=== PATIENT | female | born 1980 | race Hispanic/Latino ===

== ENCOUNTER 2016-09-23 22:08 | Emergency (ER) | payer MEDICAID ==
[2016-09-23 22:09] VITALS: BMI 20.7
[2016-09-23] MEDS ORDERED: Lactated Ringer's 2,000 ML IV STA (23:26)
--- NOTE | 2016-09-23 23:58 | ED PDOC ---
HPI: Chest Pain Time Seen by Provider: 09/23/16 22:51 Chief Complaint (Nursing): Anxiety Chief Complaint (Provider): chest tightness History Per: Patient History/Exam Limitations: no limitations Onset/Duration Of Symptoms: Days (1) Current Symptoms Are (Timing): Still Present Quality: Squeezing Associated Symptoms: Nausea, Other (Near syncope). denies: Dyspnea, Diaphoresis , Syncope Additional Complaint(s): Pt reports that for 2 days increasing episodes of palpitations, chest tightness , headache and severe weakness diffusely. Symptoms started the evening after starting diflucan for esophageal palmer. She had underwent colonscopy and endoscopy 2 weeks ago for chronic bloody diarrhea. (GI: Dr Elizalde) She was found to have small hiatal hernia, candidal esphogeal infection, and colitis ( but no ulcerative colitis or crohns). Has had similar episodes of chest pain, palpitations, headache in the past, typically due to taking antibiotics. Has not taken oral antifungals in the past. Has Lyme disease and [facility] to [facility], but not since last summer. She was put on multiple courses of antibiotics and antiparasitics which seemed to only exacerbate her symptoms. PMD Dr Schuster (last seen in March.) Past Medical History Reviewed: Historical Data, Nursing Documentation, Vital Signs Vital Signs: Last Vital Signs Temp 98.7 F 09/24/16 03:10 Pulse 63 09/24/16 03:10 Resp 18 09/24/16 03:10 BP 122/62 09/24/16 03:10 Pulse Ox 100 09/26/16 02:26 - Medical History Other PMH: Lyme disease, chronic UTI - Surgical History Surgical History: Endoscopy Other surgeries: Myomectomy - Family History Family History: States: CAD - Social History Current smoker - smoking cessation education provided: No Alcohol: None Drugs: Denies - Home Medications Home Medications: Ambulatory Orders Medication Instructions Recorded Alprazolam [Xanax] 0.25 mg PO HS 08/30/16 Norgestimate-Ethinyl Estradiol 1 tab PO DAILY 08/30/16 [Trinessa Tablet] Ciprofloxacin [Cipro] 500 mg PO Q12 #14 tab 09/24/16 - Allergies Allergies/Adverse Reactions: Allergies Allergy/AdvReac Type Severity Reaction Status Date / Time No Known Allergies Allergy Verified 08/30/16 10:19 Review of Systems ROS Statement: Except As Marked, All Systems Reviewed And Found Negative (and as per HPI) Constitutional: Positive for: Chills, Weakness, Malaise Cardiovascular: Positive for: Chest Pain, Palpitations, Light Headedness Respiratory: Positive for: Shortness of Breath Gastrointestinal: Positive for: Nausea, Diarrhea Genitourinary Female: Positive for: Dysuria, Frequency Physical Exam - Reviewed Nursing Documentation Reviewed: Yes Vital Signs Reviewed: Yes - Physical Exam Appears: Positive for: Uncomfortable, In Acute Distress Head Exam: Positive for: ATRAUMATIC, NORMOCEPHALIC Skin: Positive for: Warm, Dry Eye Exam: Positive for: EOMI, PERRL ENT: Negative for: Pharyngeal Erythema, Tonsillar Exudate Neck: Positive for: Painless ROM, Supple Cardiovascular/Chest: Positive for: Regular Rate, Rhythm. Negative for: Murmur Respiratory: Positive for: Normal Breath Sounds. Negative for: Wheezing Gastrointestinal/Abdominal: Positive for: Bowel Sounds, Soft. Negative for: Tenderness, Mass, Distended, Guarding, Rebound Back: Positive for: Normal Inspection. Negative for: L CVA Tenderness, R CVA Tenderness Extremity: Positive for: Normal ROM. Negative for: Pedal Edema Lymphatic: Negative for: Adenopathy Neurologic/Psych: Positive for: Alert. Negative for: Motor/Sensory Deficits - Laboratory Results Result Diagrams: 09/23/16 23:30 09/23/16 23:30 - ECG O2 Sat by Pulse Oximetry: 100 Disposition - Clinical Impression Clinical Impression: Lyme disease, Weakness, Urinary tract infection - Disposition Disposition: Transfer of Care Disposition Time: 00:00 Condition: STABLE Prescriptions: Ciprofloxacin [Cipro] 500 mg PO Q12 #14 tab Patient Signed Over To: Florian Benavides Handoff Comments: Pending ER workup, reassessment and final disposition
[2016-09-24 00:26] LABS: BASO % 0.7 % (0.0-2.0); EOS # 0.1 K/uL (0.0-0.7); EOS % 1.9 % (0.0-4.0); HEMATOCRIT 40.9 % (34.0-47.0); LYMPH # 2.1 K/uL (1.0-4.3); LYMPH % 32.9 % (20.0-40.0); MEAN CELL VOLUME 89.9 fl (81.0-99.0); MEAN CORPUSCULAR HEMOGLOBIN 29.6 pg (27.0-31.0); MONO # 0.7 K/uL (0.0-0.8); MONO % 10.3 % (0.0-10.0); NEUT # 3.5 K/uL (1.8-7.0); NEUT % 54.2 % (50.0-75.0); NRBC % 0.2 % (0.0-0.0); RED CELL DISTRIBUTION WIDTH 13.3 % (11.5-14.5); WHITE BLOOD COUNT 6.5 K/uL (4.8-10.8)
[2016-09-24 00:38] LABS: ALB/GLOB RATIO 1.2 (1.0-2.1); ALKALINE PHOSPHATASE 59 U/L (38-126); ALT/SGPT 31 U/L (9-52); AST/SGOT 27 U/L (14-36); BILIRUBIN,TOTAL 0.2 mg/dl (0.2-1.3); BLOOD UREA NITROGEN 17 mg/dl (7-17); CALCIUM 9.2 mg/dL (8.4-10.2); CARBON DIOXIDE 25 mmol/L (22-30); CHLORIDE 105 mmol/L (98-107); GFR AFRICAN-AMERICAN > 60; GLUCOSE,RANDOM 90 mg/dL (65-105); LIPASE 143 U/L (23-300); MAGNESIUM 2.2 MG/DL (1.6-2.3); PHOSPHOROUS 2.3 mg/dl (2.5-4.5); POTASSIUM 3.6 MMOL/L (3.6-5.0); SODIUM 137 mmol/l (132-148); TOTAL PROTEIN 7.6 G/DL (6.3-8.2)
[2016-09-24 00:55] LABS: RBC URINE 8 /hpf (0-3); URINE BACTERIA MANY (<OCC); URINE BILIRUBIN NEGATIVE (NEGATIVE); URINE BLOOD SMALL (NEGATIVE); URINE COLOR YELLOW (YELLOW); URINE GLUCOSE (UA) NEG (Normal); URINE KETONE TRACE mg/dL (NEGATIVE); URINE LEUKOCYTE ESTERASE LARGE Leu/uL (Negative); URINE PROTEIN NEGATIVE (NEGATIVE); URINE UROBILINOGEN 0.2-1.0 mg/dL (0.2-1.0); WBC URINE 121 /hpf (0-5)
--- NOTE | 2016-09-24 01:03 | ED PDOC ---
- Laboratory Results Result Diagrams: 09/23/16 23:30 09/23/16 23:30 - ECG O2 Sat by Pulse Oximetry: 100 Medical Decision Making Medical Decision Makin:00 Patient signed over to me by Dr. Nanette Lloyd pending labs and reevaluation. 1:39 Labs reviewed, showed no clinically significant abnormalities with exception of urine, which was indicative of UTI. Patient reports feeling significant improvement after IV hydration. Provider has referred patient to Infectious Disease for follow up. 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 Ppatient is to be discharged home with Rx for Ciprofloxacin. Provider also reinforced need for compliance with antibiotics for treatment of UTI, which the patient states that she will consider after filling prescription. Clinical Impression: Weakness, Chronic Lyme Disease, UTI Scribe Attestation: Documented by Shaniqua Louis, acting as a scribe for Florian Benavides MD. Provider Scribe Attestation: All medical record entries made by the Scribe were at my direction and personally dictated by me. I have reviewed the chart and agree that the record accurately reflects my personal performance of the history, physical exam, medical decision making, and the department course for this patient. I have also personally directed, reviewed, and agree with the discharge instructions and disposition. Disposition - Clinical Impression Clinical Impression: Urinary tract infection, Lyme disease, Weakness - POA Present On Arrival: None - Disposition Referrals: [facility] [Outside] [facility] [Outside] Abraham Kc MD [Staff Provider] - Disposition: Routine/Home Disposition Time: 01:39 Condition: IMPROVED Prescriptions: Ciprofloxacin [Cipro] 500 mg PO Q12 #14 tab Instructions: Lyme Disease (ED), Urinary Tract Infection in Women (ED), Weakness (ED)
[2016-09-24 01:08] LABS: THYROID STIMULATING HORMONE 1.89 mIU/ML (0.46-4.68)
[2016-09-24 03:11] VITALS: BP 122/62; PULSE 63; RESP 18; TEMP 98.7
[2016-09-26 02:27] VITALS: O2SAT 100
--- NOTE | 2016-09-26 09:56 | CARD ---
APPROVED REPORT EKG Measurement Heart [id number] <Conclusion> Normal sinus rhythm Normal ECG
== END 2016-09-24 03:15 | disposition home or self-care (01) ==
LOC: H.ER 22:08
DX: A69.20 Lyme disease, unspecified (principal); N39.0 Urinary tract infection, site not specified; R53.1 Weakness

== ENCOUNTER 2016-12-22 17:50 | Emergency (ER) | payer MEDICAID ==
[2016-12-22 17:51] VITALS: BMI 20.4
[2016-12-22 17:56] VITALS: BP 106/71; PULSE 97; RESP 16; TEMP 98.5; O2SAT 100
[2016-12-22] MEDS ORDERED: Sodium Chloride 0.9% 1,000 ML IV STA (18:13)
[2016-12-22 18:38] LABS: BASO % 0.6 % (0.0-2.0); EOS # 0.2 K/uL (0.0-0.7); EOS % 2.2 % (0.0-4.0); LYMPH # 2.6 K/uL (1.0-4.3); LYMPH % 31.8 % (20.0-40.0); MEAN CELL VOLUME 90.5 fl (81.0-99.0); MEAN CORPUSCULAR HEMOGLOBIN 29.8 pg (27.0-31.0); MEAN CORPUSCULAR HGB CONC 32.9 g/dL (33.0-37.0); MEAN PLATELET VOLUME 9.9 fl (7.2-11.7); MONO # 0.6 K/uL (0.0-0.8); MONO % 6.9 % (0.0-10.0); NEUT # 4.8 K/uL (1.8-7.0); NEUT % 58.5 % (50.0-75.0); NRBC % 0.1 % (0.0-0.0); RED CELL DISTRIBUTION WIDTH 13.8 % (11.5-14.5); WHITE BLOOD COUNT 8.1 K/uL (4.8-10.8)
[2016-12-22 18:52] LABS: ALB/GLOB RATIO 1.4 (1.0-2.1); ALKALINE PHOSPHATASE 59 U/L (38-126); ALT/SGPT 26 U/L (9-52); AST/SGOT 34 U/L (14-36); BILIRUBIN,TOTAL 0.5 mg/dl (0.2-1.3); BLOOD UREA NITROGEN 16 mg/dl (7-17); CARBON DIOXIDE 23 mmol/L (22-30); CHLORIDE 106 mmol/L (98-107); GFR AFRICAN-AMERICAN > 60; GLUCOSE,RANDOM 82 mg/dL (65-105); POTASSIUM 4.5 MMOL/L (3.6-5.0); SODIUM 137 mmol/l (132-148); TOTAL PROTEIN 7.5 G/DL (6.3-8.2)
--- NOTE | 2016-12-22 19:05 | ED PDOC ---
HPI: Back Time Seen by Provider: 12/22/16 17:50 Chief Complaint (Nursing): Back Pain Chief Complaint (Provider): Left Flank Pain History Per: Patient History/Exam Limitations: no limitations Onset/Duration Of Symptoms: Days (several weeks), Worse Since (last night) Current Symptoms Are (Timing): Still Present Severity: Moderate Associated Symptoms: Other (increased urgency, nausea, and vomiting.) Additional Complaint(s): 36 year old female with a pertinent medical history of kidney stones presents to the ED with complaints of left sided flank pain that she has had for several weeks but worsened last night. She reports having associated nausea, vomiting, and increased urgency. She denies having fevers and hematuria. PMD: Past Medical History Reviewed: Historical Data, Nursing Documentation, Vital Signs Vital Signs: Last Vital Signs Temp 98.5 F 12/22/16 17:53 Pulse 97 H 12/22/16 17:53 Resp 16 12/22/16 17:53 BP 106/71 12/22/16 17:53 Pulse Ox 100 12/22/16 17:53 - Medical History PMH: Kidney Stones Denies: Colonic Polyps, Fractures, Chronic Kidney Disease, TIA Other PMH: Lupus - Surgical History Surgical History: Endoscopy - Family History Family History: States: CAD - Social History Ex-Smoker (has not smoked in the last 12 months): Yes Alcohol: None Drugs: Denies - Home Medications Home Medications: Ambulatory Orders Medication Instructions Recorded Alprazolam [Xanax] 0.25 mg PO HS 08/30/16 Norgestimate-Ethinyl Estradiol 1 tab PO DAILY 08/30/16 [Trinessa Tablet] levoFLOXacin [Levaquin] 500 mg PO DAILY 10/24/16 - Allergies Allergies/Adverse Reactions: Allergies Allergy/AdvReac Type Severity Reaction Status Date / Time No Known Allergies Allergy Verified 12/22/16 17:53 Review of Systems ROS Statement: Except As Marked, All Systems Reviewed And Found Negative Constitutional: Negative for: Fever, Chills Gastrointestinal: Positive for: Nausea, Vomiting. Negative for: Abdominal Pain , Diarrhea Genitourinary Female: Positive for: Frequency (increased urgency). Negative for : Hematuria Musculoskeletal: Positive for: Back Pain (left flank pain) Physical Exam - Reviewed Nursing Documentation Reviewed: Yes Vital Signs Reviewed: Yes - Physical Exam Appears: Positive for: Non-toxic, Uncomfortable (writhing in pain) Head Exam: Positive for: ATRAUMATIC, NORMOCEPHALIC Skin: Positive for: Normal Color, Warm, Dry Cardiovascular/Chest: Positive for: Regular Rate, Rhythm Respiratory: Positive for: Normal Breath Sounds. Negative for: Respiratory Distress Gastrointestinal/Abdominal: Positive for: Tenderness (Right lower quadrant tenderness) Back: Positive for: L CVA Tenderness (left flank tenderness) Neurologic/Psych: Positive for: Alert, Oriented (3x) - Laboratory Results Result Diagrams: 12/22/16 18:22 12/22/16 18:22 - ECG O2 Sat by Pulse Oximetry: 100 (RA) Pulse Ox Interpretation: Normal Medical Decision Making Medical Decision Makin:07 Initial impression: 36 year old female with a history of kidney stones and left flank pain. rule out stone Initial plan: * CT abd and pelvis w/o PO or IV * CMP * urine * udip * CBC * IV NS 1,000ml IV 999 mls/hr * toradol 30mg IV * zofran 4mg IV * urine culture * reevaluation 20:32 CT abdomen and pelvis read and reviewed by radiologist FINDINGS: LOWER THORAX: No infiltrate seen in the lung bases. ABDOMEN: LIVER: No acute abnormality of the liver identified. GALLBLADDER AND BILE DUCTS: No CT evidence of acute cholecystitis. No evidence of significant biliary ductal dilatation. PANCREAS: No CT evidence of acute pancreatitis. SPLEEN: No acute abnormality of the spleen identified. ADRENALS: No acute abnormality of the adrenal glands identified. KIDNEYS AND URETERS:No acute abnormality of the kidneys seen. No renal stones, hydronephrosis, or hydroureter seen. STOMACH AND BOWEL: Retained stool noted throughout the colon. The bowel is otherwise unremarkable, allowing for unenhanced technique. No evidence of bowel obstruction, pancolitis, or significant gastric dilatation. APPENDIX: High density material seen in the lumen of the appendix. This could represent retained oral contrast from a prior study versus appendicoliths. There are no findings to suggest acute appendicitis. PELVIS: BLADDER: No acute abnormality of the bladder identified. REPRODUCTIVE: No acute abnormality of the uterus identified. No evidence of large adnexal masses. No acute abnormality of the reproductive organs is seen. ABDOMEN and PELVIS: INTRAPERITONEAL SPACE: No evidence of free intraperitoneal air or fluid. BONES/JOINTS: No acute fractures or other acute bony abnormality noted. SOFT TISSUES: No acute abnormality of the visualized soft tissues is seen. VASCULATURE: No evidence of abdominal aortic aneurysm. No evidence of periaortic hemorrhage. LYMPH NODES: No evidence of diffuse lymphadenopathy. IMPRESSION: - No evidence of significant acute process on this unenhanced exam. There is no evidence of nephrolithiasis or obstructive uropathy. - See above for remaining findings. 22:27 Urine shows neg leuk and nit. CT as above is negative. Pt referred to outpt urology. Patient is stable for discharge home and is given referral to urology. Scribe Attestation: Documented by Lizbeth Toribio, acting as a scribe for Sadi Barrow MD. Provider Scribe Attestation: All medical record entries made by the Scribe were at my direction and personally dictated by me. I have reviewed the chart and agree that the record accurately reflects my personal performance of the history, physical exam, medical decision making, and the department course for this patient. I have also personally directed, reviewed, and agree with the discharge instructions and disposition. Disposition - Clinical Impression Clinical Impression: Back pain - Patient ED Disposition Is Patient to be Admitted: No Counseled Patient/Family Regarding: Studies Performed, Need For Followup - Disposition Referrals: [facility] [Outside] Temitope Moody MD [Medical Doctor] - Disposition: Routine/Home Disposition Time: 22:10 Condition: IMPROVED Additional Instructions: follow up with your primary doctor in 1-2 days return to the ED with any worsening or concerning symptoms Instructions: Back Pain (ED)
--- NOTE | 2016-12-22 20:32 | CT ---
EXAM: CT Abdomen and Pelvis Without Intravenous Contrast CLINICAL HISTORY: 36 years old, female; Pain; Abdominal pain; Flank; Left; Prior surgery; Surgery date: 6+ months; Surgery type: Myomectomy about 4 yrs ago; Additional info: Left flank pain rule out stone TECHNIQUE: Axial computed tomography images of the abdomen and pelvis without intravenous contrast. This CT exam was performed using one or more of the following dose reduction techniques: automated exposure control, adjustment of the mA and/or kV according to patient size, and/or use of iterative reconstruction technique. Coronal and sagittal reformatted images were created and reviewed. EXAM DATE/TIME: 12/22/2016 6:56 PM COMPARISON: Prior CT abdomen and pelvis of 04/13/2008 FINDINGS: LOWER THORAX: No infiltrate seen in the lung bases. ABDOMEN: LIVER: No acute abnormality of the liver identified. GALLBLADDER AND BILE DUCTS: No CT evidence of acute cholecystitis. No evidence of significant biliary ductal dilatation. PANCREAS: No CT evidence of acute pancreatitis. SPLEEN: No acute abnormality of the spleen identified. ADRENALS: No acute abnormality of the adrenal glands identified. KIDNEYS AND URETERS:No acute abnormality of the kidneys seen. No renal stones, hydronephrosis, or hydroureter seen. STOMACH AND BOWEL: Retained stool noted throughout the colon. The bowel is otherwise unremarkable, allowing for unenhanced technique. No evidence of bowel obstruction, pancolitis, or significant gastric dilatation. APPENDIX: High density material seen in the lumen of the appendix. This could represent retained oral contrast from a prior study versus appendicoliths. There are no findings to suggest acute appendicitis. PELVIS: BLADDER: No acute abnormality of the bladder identified. REPRODUCTIVE: No acute abnormality of the uterus identified. No evidence of large adnexal masses. No acute abnormality of the reproductive organs is seen. ABDOMEN and PELVIS: INTRAPERITONEAL SPACE: No evidence of free intraperitoneal air or fluid. BONES/JOINTS: No acute fractures or other acute bony abnormality noted. SOFT TISSUES: No acute abnormality of the visualized soft tissues is seen. VASCULATURE: No evidence of abdominal aortic aneurysm. No evidence of periaortic hemorrhage. LYMPH NODES: No evidence of diffuse lymphadenopathy. IMPRESSION: - No evidence of significant acute process on this unenhanced exam. There is no evidence of nephrolithiasis or obstructive uropathy. - See above for remaining findings.
[2016-12-22 22:04] LABS: RBC URINE 1 /hpf (0-3); URINE BACTERIA MOD (<OCC); URINE BILIRUBIN NEGATIVE (NEGATIVE); URINE BLOOD NEGATIVE (NEGATIVE); URINE COLOR STRAW (YELLOW); URINE GLUCOSE (UA) NEG (Normal); URINE KETONE NEGATIVE (NEGATIVE); URINE LEUKOCYTE ESTERASE NEG Leu/uL (Negative); URINE PROTEIN NEGATIVE (NEGATIVE); URINE UROBILINOGEN 0.2-1.0 mg/dL (0.2-1.0); WBC URINE 3 /hpf (0-5)
== END 2016-12-22 22:20 | disposition home or self-care (01) ==
LOC: H.ER 17:50
DX: M54.9 Dorsalgia, unspecified (principal)

== ENCOUNTER 2017-01-25 16:54 | Emergency (ER) | payer MEDICAID ==
[2017-01-25 16:54] VITALS: BMI 20.4
[2017-01-25] MEDS ORDERED: Sodium Chloride 0.9% 1,000 ML IV STA (18:27)
[2017-01-25] MEDS ORDERED: Ciprofloxacin 400mg/200ml D5W 400 MG/200 ML BAG IV STA (18:38)
--- NOTE | 2017-01-25 18:50 | ED PDOC ---
HPI: Abdomen Time Seen by Provider: 01/25/17 17:52 Chief Complaint (Nursing): Back Pain Chief Complaint (Provider): Left flank Pain and Left Abdominal Pain History Per: Patient History/Exam Limitations: no limitations Onset/Duration Of Symptoms: Days (x1 day), Worse Since (worening since onset.) Outside of [place] travel?: No Current Symptoms Are (Timing): Still Present Associated Symptoms: Nausea, Vomiting, Diarrhea (x2 episodes), Urinary Symptoms Additional Complaint(s): Keysha Larry, a 36 year old female, who has a past medical history of lyme disease and UTI, presents to the ED complaining of left flank pain and abdominal pain x1 day. The patient says the pain has been worsening since onset. She states that she has had associated dysuria, frequency and frequency since monday. The patient further states that she has been feeling nauseous and has some episodes of vomiting (non bloody non bilious) along with 2 episodes of diarrhea. She states that she saw a fill manager today who sent her to the ER for further evaluation of possible pyelonephritis. PMD: Dr. 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 Bailey ([place]) Abnormal Vaginal Bleeding: No Past Medical History Reviewed: Historical Data, Nursing Documentation, Vital Signs Vital Signs: Last Vital Signs Temp 97.8 F 01/25/17 23:07 Pulse 83 01/25/17 23:07 Resp 18 01/25/17 23:07 BP 133/68 01/25/17 23:07 Pulse Ox 100 01/25/17 23:07 - Medical History PMH: Kidney Stones Denies: Colonic Polyps, Fractures, Chronic Kidney Disease, TIA Other PMH: Lyme Disease, Urinary Tract Infection - Surgical History Surgical History: Endoscopy Other surgeries: Myomectomy. - Family History Family History: States: CAD - Social History Current smoker - smoking cessation education provided: No Ex-Smoker (has not smoked in the last 12 months): No Alcohol: None Drugs: Denies - Home Medications Home Medications: Ambulatory Orders Medication Instructions Recorded Alprazolam [Xanax] 0.25 mg PO HS 08/30/16 Norgestimate-Ethinyl Estradiol 1 tab PO DAILY 08/30/16 [Trinessa Tablet] levoFLOXacin [Levaquin] 500 mg PO DAILY 10/24/16 Ciprofloxacin HCl [Cipro] 500 mg PO BID #20 tab 01/25/17 Ibuprofen [Motrin Tab] 600 mg PO Q8 PRN #60 tab 01/25/17 traMADol [Ultram] 50 mg PO TID PRN #15 tab 01/25/17 - Allergies Allergies/Adverse Reactions: Allergies Allergy/AdvReac Type Severity Reaction Status Date / Time No Known Allergies Allergy Verified 12/22/16 17:53 Review of Systems ROS Statement: Except As Marked, All Systems Reviewed And Found Negative Gastrointestinal: Positive for: Nausea, Vomiting (non bloody, non bilious), Abdominal Pain, Diarrhea (x2 episodes) Genitourinary Female: Positive for: Dysuria, Frequency Musculoskeletal: Positive for: Back Pain (Left flank pain) Physical Exam - Reviewed Nursing Documentation Reviewed: Yes Vital Signs Reviewed: Yes - Physical Exam Appears: Positive for: Non-toxic, Uncomfortable (Wretching), In Acute Distress ( Moderate painful distress) Head Exam: Positive for: ATRAUMATIC, NORMAL INSPECTION, NORMOCEPHALIC Skin: Positive for: Normal Color, Warm, Dry Eye Exam: Positive for: Normal appearance, EOMI, PERRL ENT: Positive for: Normal ENT Inspection Neck: Positive for: Normal, Painless ROM, Supple Cardiovascular/Chest: Positive for: Regular Rate, Rhythm, Chest Non Tender Respiratory: Positive for: Normal Breath Sounds. Negative for: Wheezing, Respiratory Distress Gastrointestinal/Abdominal: Positive for: Bowel Sounds, Soft, Tenderness (Left sided abdominal tenderness.). Negative for: Mass, Distended, Guarding, Rebound Back: Positive for: L CVA Tenderness Extremity: Positive for: Normal ROM. Negative for: Tenderness, Pedal Edema, Deformity, Swelling Neurologic/Psych: Positive for: Alert, Oriented, Gait - Laboratory Results Result Diagrams: 01/25/17 18:45 01/25/17 18:45 - ECG O2 Sat by Pulse Oximetry: 99 (RA) Pulse Ox Interpretation: Normal Medical Decision Making Medical Decision Makin Initial Impression: 36 year old female presenting with left flank pain and abdominal pain Differentials: UTI, Cystitis, Colitis, Renal Colic and Pylonephritis Initial Plan: * VBG * Comp Metabolic Panel * Lipase * Upreg * Udip * CBC * Cipro 400mg/200ml DSW IV * NS 1000mls IV 1000mls/hr * Toradol 15mg IV * Zofran 8mg IV * Blood Culture * Urine Culture * Urinalysis * Reevaluation Accession No. : [id number] Patient Name / ID : LARON YEN / [id number] Exam Date : 01/25/2017 21:12:47 ( Approved ) Study Comment : Sex / Age : F / 36Y Creator : Andrés Kaba MD Dictator : Bench Worker Apprentice : Hand Laminator : Andrés Kaba MD Approver2 : Report Date : 01/25/2017 21:36:00 My Comment : [facility] Division of Radiology [address] [place] [address] Tel. no. Patient Name: KEYSHA LARRY Pt. Address: [address] [place] [address]. Rec #: [id number] [place] [address]: Gabino DUMONT, Nanette Hwang Pt CELL Order Location: [facility] : 1980 Female Age: 36 Order #: [id number] Reason for exam: LEFT flank pain CT Scan ABD PELVIS W/O PO OR IV CONT Exam Date: 01/25/17 This imaging exam was performed at [facility] EXAM: CT Abdomen and Pelvis Without Intravenous Contrast CLINICAL HISTORY: 36 years old, female; Pain; Abdominal pain; Flank; Left; Prior surgery; Surgery date: 6+ months; Surgery type: Myomectomy; Additional info: Left flank pain. Sent labs, and phy. Doc TECHNIQUE: Axial computed tomography images of the abdomen and pelvis without intravenous contrast. This CT exam was performed using one or more of the following dose reduction techniques: automated exposure control, adjustment of the mA and/or kV according to patient size, and/or use of iterative reconstruction technique. Coronal and sagittal reformatted images were created and reviewed. COMPARISON: CT - ABD PELVIS W/O PO OR IV CONT 12/22/2016 7:03:52 PM FINDINGS: Lower thorax: No acute findings. ABDOMEN: Liver: Unremarkable. Gallbladder and bile ducts: No calcified stones. No ductal dilation. Pancreas: Unremarkable. No ductal dilation. Spleen: No splenomegaly. Adrenals: No mass. Kidneys and ureters: No renal calculi. No hydronephrosis. Stomach and bowel: No definite mural thickening. No obstruction. Appendix: Normal caliber. No inflammation. PELVIS: Bladder: Unremarkable. No stones. Reproductive: 2.3 x 2.2 x 2.1 cm hypodense lesion within RIGHT ovary. ABDOMEN and PELVIS: Intraperitoneal space: Trace free fluid within pelvis. No free air. Bones/joints: No acute fracture. Soft tissues: Unremarkable. Vasculature: Few rounded calcifications within pelvis, likely phleboliths. No aneurysm. Lymph nodes: No pathologically enlarged lymph nodes. IMPRESSION: 1. No CT evidence of urolithiasis. 2. Probable RIGHT ovarian cyst. Consider ultrasound. 3. Incidental/non-acute findings are described above. Dictated By: Andrés Kaba MD Dictated Date/Time: 01/25/172135 Signed By: Andrés Kaba MD Date Signed: 2135 Transcribed By: CAR Transcribe Date/Time : 01/25/172135 ACYP02/NETO DW pt findings. She required IV opiates in ER and offered admission for treatment of clinical pyelopnephritis. She declines at this time and is eager to go home. Scribe Attestation Documented by Blaire Garcia acting as a scribe for Nanette Lloyd MD. Provider Attestation: All medical record entries made by the Scribe were at my direction and personally dictated by me. I have reviewed the chart and agree that the record accurately reflects my personal performance of the history, physical exam, medical decision making, and the department course for this patient. I have also personally directed, reviewed, and agree with the discharge instructions and disposition. Disposition - Clinical Impression Clinical Impression: Pyelonephritis Counseled Patient/Family Regarding: Studies Performed, Diagnosis, Need For Followup, Rx Given - Disposition Referrals: Zoë Cohen MD [Medical Doctor] - 01/26/17 Disposition: Routine/Home Disposition Time: 22:00 Condition: IMPROVED Prescriptions: Ciprofloxacin HCl [Cipro] 500 mg PO BID #20 tab Ibuprofen [Motrin Tab] 600 mg PO Q8 PRN #60 tab PRN Reason: Pain, Moderate (4-7) traMADol [Ultram] 50 mg PO TID PRN #15 tab PRN Reason: SEVERE PAIN ONLY Instructions: Acute Pyelonephritis (ED) Forms: [facility] ED School/Work Excuse
[2017-01-25] MEDS ORDERED: Ciprofloxacin 400mg/200ml D5W 400 MG/200 ML BAG IVPB ONE (18:57)
[2017-01-25 19:08] LABS: BASO # 0.1 K/uL (0.0-0.2); BASO % 0.8 % (0.0-2.0); EOS # 0.1 K/uL (0.0-0.7); EOS % 1.2 % (0.0-4.0); LYMPH # 1.6 K/uL (1.0-4.3); LYMPH % 17.4 % (20.0-40.0); MEAN CELL VOLUME 90.4 fl (81.0-99.0); MEAN CORPUSCULAR HEMOGLOBIN 29.8 pg (27.0-31.0); MEAN CORPUSCULAR HGB CONC 32.9 g/dL (33.0-37.0); MEAN PLATELET VOLUME 9.5 fl (7.2-11.7); MONO # 0.7 K/uL (0.0-0.8); MONO % 7.2 % (0.0-10.0); NEUT % 73.4 % (50.0-75.0); RED CELL DISTRIBUTION WIDTH 13.7 % (11.5-14.5); WHITE BLOOD COUNT 9.5 K/uL (4.8-10.8)
[2017-01-25 19:12] LABS: VENOUS BLOOD GAS BASE EXCESS 4.4 mmol/L (0.0-2.0); VENOUS BLOOD GAS PCO2 52 mmHg (40-60); VENOUS BLOOD PH 7.38 (7.32-7.43)
[2017-01-25 19:22] LABS: ALB/GLOB RATIO 1.4 (1.0-2.1); ALKALINE PHOSPHATASE 47 U/L (38-126); ALT/SGPT 37 U/L (9-52); AST/SGOT 19 U/L (14-36); BILIRUBIN,TOTAL 0.3 mg/dl (0.2-1.3); BLOOD UREA NITROGEN 10 mg/dl (7-17); CALCIUM 9.2 mg/dL (8.4-10.2); CARBON DIOXIDE 26 mmol/L (22-30); CHLORIDE 105 mmol/L (98-107); GFR AFRICAN-AMERICAN > 60; GLUCOSE,RANDOM 83 mg/dL (65-105); LIPASE 74 U/L (23-300); POTASSIUM 4.2 MMOL/L (3.6-5.0); SODIUM 140 mmol/l (132-148); TOTAL PROTEIN 6.8 G/DL (6.3-8.2)
[2017-01-25 19:57] LABS: RBC URINE 3 /hpf (0-3); URINE BACTERIA FEW (<OCC); URINE BILIRUBIN NEGATIVE (NEGATIVE); URINE BLOOD SMALL (NEGATIVE); URINE COLOR STRAW (YELLOW); URINE GLUCOSE (UA) NEG (Normal); URINE KETONE NEGATIVE (NEGATIVE); URINE LEUKOCYTE ESTERASE LARGE Leu/uL (Negative); URINE PROTEIN NEGATIVE (NEGATIVE); URINE UROBILINOGEN 0.2-1.0 mg/dL (0.2-1.0); WBC URINE 41 /hpf (0-5)
--- NOTE | 2017-01-25 21:36 | CT ---
EXAM: CT Abdomen and Pelvis Without Intravenous Contrast CLINICAL HISTORY: 36 years old, female; Pain; Abdominal pain; Flank; Left; Prior surgery; Surgery date: 6+ months; Surgery type: Myomectomy; Additional info: Left flank pain. Sent labs, and phy. Doc TECHNIQUE: Axial computed tomography images of the abdomen and pelvis without intravenous contrast. This CT exam was performed using one or more of the following dose reduction techniques: automated exposure control, adjustment of the mA and/or kV according to patient size, and/or use of iterative reconstruction technique. Coronal and sagittal reformatted images were created and reviewed. COMPARISON: CT - ABD PELVIS W/O PO OR IV CONT 12/22/2016 7:03:52 PM FINDINGS: Lower thorax: No acute findings. ABDOMEN: Liver: Unremarkable. Gallbladder and bile ducts: No calcified stones. No ductal dilation. Pancreas: Unremarkable. No ductal dilation. Spleen: No splenomegaly. Adrenals: No mass. Kidneys and ureters: No renal calculi. No hydronephrosis. Stomach and bowel: No definite mural thickening. No obstruction. Appendix: Normal caliber. No inflammation. PELVIS: Bladder: Unremarkable. No stones. Reproductive: 2.3 x 2.2 x 2.1 cm hypodense lesion within RIGHT ovary. ABDOMEN and PELVIS: Intraperitoneal space: Trace free fluid within pelvis. No free air. Bones/joints: No acute fracture. Soft tissues: Unremarkable. Vasculature: Few rounded calcifications within pelvis, likely phleboliths. No aneurysm. Lymph nodes: No pathologically enlarged lymph nodes. IMPRESSION: 1. No CT evidence of urolithiasis. 2. Probable RIGHT ovarian cyst. Consider ultrasound. 3. Incidental/non-acute findings are described above.
[2017-01-25 23:08] VITALS: BP 133/68; PULSE 83; RESP 18; TEMP 97.8
[2017-01-28 20:53] VITALS: O2SAT 99
== END 2017-01-25 23:13 | disposition home or self-care (01) ==
LOC: H.ER 16:54
DX: N10 Acute pyelonephritis (principal); A69.20 Lyme disease, unspecified

== ENCOUNTER 2017-05-24 19:03 | Emergency (ER) | payer MEDICAID ==
[2017-05-24 19:03] VITALS: BMI 20.4
[2017-05-24 19:16] VITALS: O2SAT 99
[2017-05-24] MEDS ORDERED: Sodium Chloride 0.9% 1,000 ML IV STA (19:39)
--- NOTE | 2017-05-24 20:17 | ED PDOC ---
HPI: Headache Time Seen by Provider: 05/24/17 19:23 Chief Complaint (Nursing): Dizziness/Lightheaded History Per: Patient History/Exam Limitations: no limitations Onset/Duration Of Symptoms: Days Current Symptoms Are (Timing): Still Present Quality: Tightness Preceeding Symptoms: None Associated Symptoms: Photophobia Additional Complaint(s): Hx of Lyme Disease x 12 years (on no meds) p/w DEAN x 2 days, states she has had relapsing/remitting, gradually worsening, nonthunderclap, not worse of life, throbbing DEAN, described as "brain squeezing" sensation. States she has "burning " sensation on parts of legs that come and go. Partner states that she's been weak and has been nearly fainting, states that she has also been "laughing" inappropriately. Denies drug/alcohol use, states she is a former smoker. Takes no meds other than OCPs. States they were told to get a CT from PMD. Requesting MRI as well. - Risk Factors SAH Risk Factors: Neg: Marfan's Syndrome, Sudden Onset Of Pain, Worst Headache Of Life Past Medical History Reviewed: Historical Data, Nursing Documentation, Vital Signs Vital Signs: Last Vital Signs Temp 97.5 F L 05/24/17 19:15 Pulse 84 05/24/17 19:15 Resp 16 05/24/17 19:15 BP 128/85 05/24/17 19:15 Pulse Ox 99 05/24/17 19:15 - Medical History PMH: Kidney Stones Denies: Colonic Polyps, Fractures, Chronic Kidney Disease, TIA - Surgical History Surgical History: Endoscopy - Family History Family History: States: CAD - Home Medications Home Medications: Ambulatory Orders Medication Instructions Recorded Alprazolam [Xanax] 0.25 mg PO HS 08/30/16 Norgestimate-Ethinyl Estradiol 1 tab PO DAILY 08/30/16 [Trinessa Tablet] levoFLOXacin [Levaquin] 500 mg PO DAILY 10/24/16 Ciprofloxacin HCl [Cipro] 500 mg PO BID #20 tab 01/25/17 Ibuprofen [Motrin Tab] 600 mg PO Q8 PRN #60 tab 01/25/17 traMADol [Ultram] 50 mg PO TID PRN #15 tab 01/25/17 Ketorolac Tromethamine [Toradol] 10 mg PO Q6 #30 tab 11/15/17 - Allergies Allergies/Adverse Reactions: Allergies Allergy/AdvReac Type Severity Reaction Status Date / Time No Known Allergies Allergy Verified 12/22/16 17:53 Review of Systems ROS Statement: Except As Marked, All Systems Reviewed And Found Negative Gastrointestinal: Positive for: Nausea, Vomiting Neurological: Positive for: Weakness, Incoordination, Confusion. Negative for: Change in Speech Physical Exam - Reviewed Nursing Documentation Reviewed: Yes Vital Signs Reviewed: Yes - Physical Exam Appears: Positive for: Well, Non-toxic. Negative for: No Acute Distress ( Uncomfortable appearing) Head Exam: Positive for: ATRAUMATIC, NORMAL INSPECTION, NORMOCEPHALIC Skin: Positive for: Normal Color, Warm, DRY Eye Exam: Positive for: EOMI, Normal appearance, PERRL ENT: Positive for: Normal ENT Inspection Neck: Positive for: Normal, Painless ROM Cardiovascular/Chest: Positive for: Regular Rate, Rhythm Respiratory: Positive for: CNT, Normal Breath Sounds Gastrointestinal/Abdominal: Positive for: Normal Exam, Bowel Sounds, Soft Back: Positive for: Normal Inspection Extremity: Positive for: Normal ROM Neurologic/Psych: Positive for: 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 Negative for: Motor/Sensory Deficits, Mood/Affect, Cerebellar Tests, Gait, Aphasia, Facial Droop - Laboratory Results Result Diagrams: 05/24/17 21:41 05/24/17 21:41 - ECG O2 Sat by Pulse Oximetry: 99 Pulse Ox Interpretation: Normal Medical Decision Making Medical Decision Making: A/P: Hx of Lyme's w/ DEAN x 2 days -do not suspect SAH/meningitis based on hx and pe -most likely complicated migraine -will give toradol/reglan/IVF/O2, basic labs, head CT and reassess 1015PM Pt. is feeling better. Drinking juice. Awaiting CT report. 1030PM Pt. tolerating PO. CT negative. Referral given to Dr. Ron. All questions answered and return precautions discussed (worsening headaches, fevers, neurological symptoms or other concerning symptoms). Disposition - Clinical Impression Clinical Impression: Complicated migraine - Disposition Referrals: Asif Rno MD [Medical Doctor] - Disposition: Routine/Home Disposition Time: 22:30 Condition: IMPROVED Prescriptions: Ketorolac Tromethamine [Toradol] 10 mg PO Q6 #30 tab Instructions: Migraine Headache (ED), Acute Headache (ED) Forms: [employer] (Malay)
[2017-05-24 21:45] LABS: BASO % 0.5 % (0.0-2.0); EOS # 0.1 K/uL (0.0-0.7); EOS % 1.6 % (0.0-4.0); HEMATOCRIT 38.6 % (34.0-47.0); MEAN CELL VOLUME 88.4 fl (81.0-99.0); MEAN CORPUSCULAR HEMOGLOBIN 29.3 pg (27.0-31.0); MEAN CORPUSCULAR HGB CONC 33.1 g/dL (33.0-37.0); MEAN PLATELET VOLUME 9.3 fl (7.2-11.7); MONO # 0.4 K/uL (0.0-0.8); MONO % 5.5 % (0.0-10.0); NEUT # 5.2 K/uL (1.8-7.0); NEUT % 66.4 % (50.0-75.0); RED CELL DISTRIBUTION WIDTH 13.1 % (11.5-14.5); WHITE BLOOD COUNT 7.8 K/uL (4.8-10.8)
[2017-05-24 22:07] LABS: BLOOD UREA NITROGEN 16 mg/dl (7-17); CARBON DIOXIDE 26 mmol/L (22-30); CHLORIDE 104 mmol/L (98-107); GFR AFRICAN-AMERICAN > 60; GLUCOSE,RANDOM 81 mg/dL (65-105); POTASSIUM 3.6 MMOL/L (3.6-5.0); SODIUM 140 mmol/l (132-148)
--- NOTE | 2017-05-24 22:19 | CT ---
EXAM: CT Head Without Intravenous Contrast CLINICAL HISTORY: 36 years old, female; Pain and signs and symptoms; Dizziness and other: Weakness; Headache; Headache not specified; Additional info: Headache x 2 days, HX of lyme disease TECHNIQUE: Axial computed tomography images of the head/brain without intravenous contrast. All CT scans at this facility use one or more dose reduction techniques, viz.: automated exposure control; ma/kV adjustment per patient size (including targeted exams where dose is matched to indication; i.e. head); or iterative reconstruction technique. Coronal and sagittal reformatted images were created and reviewed. COMPARISON: No relevant prior studies available. FINDINGS: Brain: No acute intracranial hemorrhage. No significant white matter disease. No edema. Ventricles: No significant ventriculomegaly. Bones: No acute displaced fracture. Sinuses: Unremarkable as visualized. No acute sinusitis. Mastoid air cells: Unremarkable as visualized. No mastoid effusion. IMPRESSION: No acute intracranial hemorrhage, or suspicious mass effect.
[2017-05-24 22:34] LABS: URINE BILIRUBIN NEGATIVE (NEGATIVE); URINE BLOOD NEGATIVE (NEGATIVE); URINE COLOR STRAW (YELLOW); URINE GLUCOSE (UA) NEG (Normal); URINE KETONE NEGATIVE (NEGATIVE); URINE LEUKOCYTE ESTERASE NEG Leu/uL (Negative); URINE PROTEIN NEGATIVE (NEGATIVE); URINE UROBILINOGEN 0.2-1.0 mg/dL (0.2-1.0); WBC URINE < 1 /hpf (0-5)
[2017-05-24 23:12] LABS: RBC URINE < 1 /hpf (0-3)
[2017-05-24 23:18] VITALS: BP 120/78; PULSE 80; RESP 18; TEMP 97.8
== END 2017-05-24 23:05 | disposition home or self-care (01) ==
LOC: H.ER 19:03
DX: G43.809 Other migraine, not intractable, without status migrainosus (principal); Z82.49 Family history of ischemic heart disease and other diseases of the circulatory system; Z87.442 Personal history of urinary calculi
CPT/HCPCS: 70450; 80048; 80324; 80345; 80346; 80349; 80353; 80358; 80361; 81003; 81025; 83992; 85025; 96374; 99284; J1885; J2765; J7040

== ENCOUNTER 2017-12-19 03:08 | Emergency (ER) | payer MEDICAID ==
[2017-12-19 03:08] VITALS: BMI 20.4
[2017-12-19 03:20] VITALS: RESP 16
[2017-12-19 04:02] LABS: BASO # 0.1 K/uL (0.0-0.2); BASO % 0.9 % (0.0-2.0); EOS # 0.1 K/uL (0.0-0.7); EOS % 0.9 % (0.0-4.0); HEMOGLOBIN 14.3 g/dL (12.0-16.0); LYMPH # 2.6 K/uL (1.0-4.3); LYMPH % 34.2 % (20.0-40.0); MEAN CELL VOLUME 89.9 fl (81.0-99.0); MEAN CORPUSCULAR HEMOGLOBIN 31.2 pg (27.0-31.0); MEAN CORPUSCULAR HGB CONC 34.7 g/dL (33.0-37.0); MEAN PLATELET VOLUME 8.9 fl (7.2-11.7); MONO # 0.6 K/uL (0.0-0.8); MONO % 8.5 % (0.0-10.0); NEUT # 4.2 K/uL (1.8-7.0); NEUT % 55.5 % (50.0-75.0); RBC 4.59 Mil/uL (3.80-5.20); RED CELL DISTRIBUTION WIDTH 12.6 % (11.5-14.5); WHITE BLOOD COUNT 7.5 K/uL (4.8-10.8)
--- NOTE | 2017-12-19 04:04 | ED PDOC ---
HPI: Psych/Substance Abuse Time Seen by Provider: 12/19/17 03:13 Chief Complaint (Nursing): Psychiatric Evaluation Chief Complaint (Provider): Psychiatric Evaluation History Per: EMS Suicide/Self Injury Attempted (Context): None Modifying Factor(s): Alcohol Additional History Per: Boyfriend Additional Complaint(s): 37 year old female brought in by [place] police in handcuffs presents to ED for a psychiatric evaluation and has a past medical history of depression. Police state that the boyfriend called [place]. Boyfriend confirms patient was drinking prior to incident. Patient denies suicidal ideation and is uncooperative upon provider evaluation. PCP: None Past Medical History Reviewed: Historical Data, Nursing Documentation, Vital Signs Vital Signs: Last Vital Signs Temp 98.7 F 12/19/17 03:17 Pulse 86 12/19/17 03:17 Resp 16 12/19/17 03:17 BP 129/84 12/19/17 03:17 Pulse Ox 100 12/19/17 03:17 - Medical History PMH: Depression, Kidney Stones Denies: No Chronic Diseases, Colonic Polyps, Fractures, Chronic Kidney Disease, TIA - Surgical History Surgical History: Endoscopy - Family History Family History: States: CAD - Social History Alcohol: Social - Home Medications Home Medications: Ambulatory Orders Medication Instructions Recorded Alprazolam [Xanax] 0.25 mg PO HS 08/30/16 Norgestimate-Ethinyl Estradiol 1 tab PO DAILY 08/30/16 [Trinessa Tablet] levoFLOXacin [Levaquin] 500 mg PO DAILY 10/24/16 Ciprofloxacin HCl [Cipro] 500 mg PO BID #20 tab 01/25/17 Ibuprofen [Motrin Tab] 600 mg PO Q8 PRN #60 tab 01/25/17 traMADol [Ultram] 50 mg PO TID PRN #15 tab 01/25/17 Ketorolac Tromethamine [Toradol] 10 mg PO Q6 #30 tab 05/24/17 - Allergies Allergies/Adverse Reactions: Allergies Allergy/AdvReac Type Severity Reaction Status Date / Time No Known Allergies Allergy Verified 12/22/16 17:53 Review of Systems Review Of Systems: ROS cannot be obtained secondary to pt's inabilty to answer questions. (due to patient's uncooperative nature) Physical Exam - Reviewed Nursing Documentation Reviewed: Yes Vital Signs Reviewed: Yes - Physical Exam Appears: Positive for: Non-toxic, No Acute Distress (Patient is agitated and uncooperative) Head Exam: Positive for: ATRAUMATIC, NORMOCEPHALIC Skin: Positive for: Normal Color, Warm, Dry Eye Exam: Positive for: Normal appearance Cardiovascular/Chest: Positive for: Regular Rate, Rhythm. Negative for: Murmur Respiratory: Positive for: Normal Breath Sounds. Negative for: Respiratory Distress Gastrointestinal/Abdominal: Positive for: Normal Exam, Soft. Negative for: Tenderness Extremity: Positive for: Normal ROM. Negative for: Deformity Neurologic/Psych: Positive for: Alert, Oriented, Other (slightly slurred speech) . Negative for: Motor/Sensory Deficits - Laboratory Results Result Diagrams: 12/19/17 03:59 12/19/17 03:59 - ECG O2 Sat by Pulse Oximetry: 100 (RA) Pulse Ox Interpretation: Normal Medical Decision Making Medical Decision Makin Initial impression: 37 year old agitated female in setting of alcohol use and possible suicidal ideation Initial plan: * EtOH serum * Labs * UDrug screen * Crisis eval * 1:1 OBS * Restraints: violent 0428 EtOH level: 133 Patient has been evaluated by crisis and deemed stable for discharge as per Dr. Moss. Patient continues to deny any suicidal ideation or plan. Dx: alcohol-induced mood disorder Scribe Attestation: Documented by Daksha Noble acting as a scribe for Florian Benavides MD. Scribe Attestation: All medical record entries made by the Scribe were at my direction and personally dictated by me. I have reviewed the chart and agree that the record accurately reflects my personal performance of the history, physical exam, medical decision making, and the department course for this patient. I have also personally directed, reviewed, and agree with the discharge instructions and disposition. Disposition - Clinical Impression Clinical Impression: Alcohol-induced mood disorder - Patient ED Disposition Is Patient to be Admitted: No - Disposition Disposition: Routine/Home Disposition Time: 04:28 Condition: STABLE Instructions: Effects of Alcohol on Your Health Forms: [employer] Connect (Djiboutian)
[2017-12-19 04:10] LABS: ALB/GLOB RATIO 1.3 (1.0-2.1); ALBUMIN 4.4 g/dL (3.5-5.0); ALT/SGPT 34 U/L (9-52); AST/SGOT 31 U/L (14-36); BLOOD UREA NITROGEN 15 mg/dl (7-17); CALCIUM 9.2 mg/dL (8.4-10.2); GFR AFRICAN-AMERICAN > 60; GFR NON-AFRICAN AMERICAN > 60
[2017-12-19 04:52] VITALS: BP 116/78; PULSE 80
[2017-12-19 04:54] VITALS: TEMP 98.2; O2SAT 98
== END 2017-12-19 04:40 | disposition home or self-care (01) ==
LOC: H.ER 03:08
DX: F10.94 Alcohol use, unspecified with alcohol-induced mood disorder (principal); F32.9 Major depressive disorder, single episode, unspecified; Y90.6 Blood alcohol level of 120-199 mg/100 ml